=== PATIENT | female | born 1960 | race Caucasian/White ===

== ENCOUNTER → 2020-02-19 | Outpatient (CLI) | payer OTHER ==
[~2020-02-19] MED LIST: GABA-585 PO; LEVO50TA72 PO
== END ==
LOC: LAB 07:54
PROVIDERS: ATTEND Nurse Anesthetist, Certified Registered
DX: Z01.818 Encounter for other preprocedural examination (principal); Z20.828 Contact with and (suspected) exposure to other viral communicable diseases
CPT/HCPCS: U0003

== ENCOUNTER → 2020-02-23 | Day surgery (SDC) | payer OTHER ==
[~2020-02-23] MED LIST changes: +IPRATRPIUM/ALBUTEROL 0.5/2.5MG 3 ML NEBU. NEB PRN; +IV RINGERS SOLUTION,LACTATED 1,000 ML IV SCH; +LIDOCAINE 2% PF 5 ML VIAL. ONE; +MIDAZOLAM HCL PF 2 MG/2 ML VIAL. IV ONE; +ONDANSETRON PF 4 MG/2 ML VIAL. IV PRN; +PROPOFOL 10,000 MCG/ML (20ML) VIAL IV ONE
[2020-02-23 09:12] VITALS: BP 123/79
--- NOTE | 2020-02-25 23:06 | PATHOLOGY ---
[facility] Accession Number: [id number] . 01 Material submitted: . colon - SIGMOID POLYP (POLYP NOT VISIBLE). Modifiers: sigmoid . 02 Diagnosis: "Sigmoid polyp (polyp not visible)", biopsy: - No colonic mucosal tissue identified. (CLW:farida; 02/25/2020) QMS 02/25/2020 1316 Local . 02 Comment: Clinical and endoscopic correlation is required. (CLW:farida; 02/25/2020) . 02 Electronically signed: . Lucy Mandel MD, Pathologist NPI- [id number] . 01 Gross description: . The specimen is received in formalin, labeled "Twin, Etelvina, sigmoid polyp" and consists of no grossly identifiable tissue (verified by CAA). The specimen contents are filtered through a biopsy bag and entirely submitted in A1. (SDY; 02/24/2020) SYU/SYU 02/24/2020 1314 Local . 02 Pathologist provided ICD-10: Z12.11 . 02 CPT . 098483 Specimen Comment: A courtesy copy of this report has been sent to [phone] Specimen Comment: 1311, Specimen Comment: Report sent to , , / Performed at: 01 [facility] [address], [place] [id number] MD Herberth Clark MD Phone: [phone] [facility]formed at: 02 [facility] [address] [place], [place] [id number] MD Joseluis Mendoza MD Phone: [phone]
== END | disposition home or self-care (01) ==
LOC: SURG 06:50
PROVIDERS: ATTEND Emergency Medicine
DX: Z12.11 Encounter for screening for malignant neoplasm of colon (principal); K63.5 Polyp of colon; K57.30 Diverticulosis of large intestine without perforation or abscess without bleeding; Z86.010 Personal history of colon polyps; Z88.0 Allergy status to penicillin; Z88.8 Allergy status to other drugs, medicaments and biological substances; Z79.899 Other long term (current) drug therapy
CPT/HCPCS: 45380; J2001; J2704

== ENCOUNTER → 2021-03-02 | Outpatient (CLI) | payer OTHER ==
[2020-02-23 09:12] VITALS: BP 123/79
[~2021-03-02] MED LIST changes: -IPRATRPIUM/ALBUTEROL 0.5/2.5MG 3 ML NEBU. NEB PRN; -IV RINGERS SOLUTION,LACTATED 1,000 ML IV SCH; -LIDOCAINE 2% PF 5 ML VIAL. ONE; -MIDAZOLAM HCL PF 2 MG/2 ML VIAL. IV ONE; -ONDANSETRON PF 4 MG/2 ML VIAL. IV PRN; -PROPOFOL 10,000 MCG/ML (20ML) VIAL IV ONE
--- NOTE | 2021-03-14 10:19 | RAD ---
BILATERAL DIGITAL SCREENING 2-D AND 3-D MAMMOGRAM INDICATION: Routine screening. COMPARISON: Prior exams including one of 02/29/2020. Interpretation was made using CAD. FINDINGS: Breast Density: B RIGHT BREAST: No suspicious masses, calcifications or areas of architectural distortion are seen. LEFT BREAST: No suspicious masses, calcifications or areas of architectural distortion are seen. IMPRESSION: 1. No imaging evidence of malignancy. ASSESSMENT: BI-RADS 1. Negative. RECOMMENDATION: Routine annual screening mammogram. The facility will notify the patient of the results via mail. Patient information will be entered int o the mammography reminder system with a target recall date for the next mammogram. A reminder letter will be generated by the facility. Electronically signed by: Mendez Hernandez Jr., MD (03/14/2021 10:17 AM) [id number]
== END ==
LOC: MAMMO 08:02
PROVIDERS: ATTEND Physician Assistant Medical
DX: Z12.31 Encounter for screening mammogram for malignant neoplasm of breast (principal)
CPT/HCPCS: 77063; 77067